=== PATIENT | female | born 1965 | race Caucasian/White ===

== ENCOUNTER 2017-05-09 07:32 | Day surgery (SDC) | payer MEDICARE, MEDICAID ==
[2017-05-09] MEDS ORDERED: Midazolam 1 MG/ML 2 ML SDV ONE (09:06)
[2017-05-09] MEDS ORDERED: Propofol 200 MG/20 ML SDV ONE (09:06)
[2017-05-09] MEDS ORDERED: fentaNYL 100 MCG/2 ML SDV ONE (09:06)
[2017-05-09] MEDS ORDERED: Lactated Ringers 1,000 ML IV SCH (09:30)
[2017-05-09 10:43] VITALS: BP 126/83
--- NOTE | 2017-05-10 08:30 | OR ---
DATE OF PROCEDURE: 05/09/2017 PREOPERATIVE DIAGNOSIS: History of colon polyps. POSTOPERATIVE DIAGNOSIS: Unremarkable colonoscopy, history of colon polyps. PROCEDURE: Colonoscopy to the cecum. SURGEON: Jona Tyler MD. ANESTHESIA: IV anesthesia with monitored anesthesia care. INDICATION: This 51-year-old white female has a history of two prior colonoscopies. In the first one, she says, they found polyps. A followup colonoscopy later was clear. This last colonoscopy was done, she says, five years ago. She is here now for a followup colonoscopy because of the prior history of polyps. I counseled her for the procedure, including risks and alternatives, and she gave her informed consent to proceed. DESCRIPTION OF PROCEDURE: The patient was placed in the left lateral decubitus position. IV anesthesia was administered by the Anesthesia Service. Time-out was held. A rectal exam was performed, which was unremarkable. The flexible video Olympus colonoscope was introduced through her anus, up her rectum, and out her colon all the way to the cecum. Once the cecum was reached, the scope was slowly withdrawn, examining the mucosa throughout. No mucosal abnormalities were noted. The scope was retroflexed in the rectum with the distal rectum appearing unremarkable. The scope was straightened and removed. She tolerated the procedure well. Jona Tyler MD /[id number] MTDD
== END 2017-05-09 11:11 | disposition home or self-care (01) ==
LOC: JP.SDS 07:32
PROVIDERS: ATTEND Surgery
DX: Z12.11 Encounter for screening for malignant neoplasm of colon (principal); Z86.010 Personal history of colon polyps; I34.1 Nonrheumatic mitral (valve) prolapse
CPT/HCPCS: G0105; J2250; J2704; J3010; J7120

== ENCOUNTER 2017-05-14 11:23 | Emergency (ER) | payer MEDICARE, MEDICAID ==
[2017-05-14 11:56] VITALS: BP 140/82
--- NOTE | 2017-05-14 12:26 | EDM.PDOC ---
ED HPI GENERAL MEDICAL PROBLEM - General Chief Complaint: Cardiovascular Problem Stated Complaint: HEART PROBLEMS Time Seen by Provider: 05/14/17 12:10 Source of Information: Reports: Patient, RN Notes Reviewed History Limitations: Reports: No Limitations - History of Present Illness INITIAL COMMENTS - FREE TEXT/NARRATIVE: 51-year-old female presents emergency department day complaint of palpitations, she states his ongoing for about 1 month it seems to be progressing in nature her events last anywhere from a couple seconds to up to 30 minutes. She has no shortness of breath or chest pain no or GI symptomatology with this. She was sent over from the clinic for further evaluation - Related Data Allergies Allergy/AdvReac Type Severity Reaction Status Date / Time No Known Allergies Allergy Verified 05/09/17 07:46 Home Meds: Home Meds Amitriptyline [Elavil] 25 mg PO BEDTIME 04/14/13 [History] Hydroxychloroquine Sulfate [Plaquenil] 200 mg PO BID 04/14/13 [History] Sertraline [Zoloft] 100 mg PO DAILY 04/14/13 [History] predniSONE [Prednisone] 5 mg PO DAILY 04/14/13 [History] Hydrocodone/Acetaminophen [Hydrocodon-Acetaminophn 10-325] 1 tab PO Q6H PRN [History] Levothyroxine 125 mcg PO DAILY 09/28/16 [History] Ascorbic Acid [Vitamin C] 100 mg PO DAILY 05/07/17 [History] Cholecalciferol (Vitamin D3) [Vitamin D3] 5,000 units PO DAILY 05/07/17 [History ] InFLIXimab [Remicade] 100 mg IV ASDIRECTED 05/07/17 [History] Meloxicam [Mobic] 15 mg PO DAILY 05/07/17 [History] Omeprazole 40 mg PO DAILY 05/07/17 [History] Zinc Acetate [Galzin] 25 mg PO DAILY 05/07/17 [History] Ferrous Sulfate [Slow Fe] 142 mg PO DAILY 05/09/17 [History] Fluticasone Furoate [Flonase Sensimist] 2 sprays NS DAILY 05/09/17 [History] Imipramine HCl [Tofranil] 10 mg PO TID 05/09/17 [History] Ipratropium [Atrovent 0.06% Nasal [place]] 2 sprays .XX BEDTIME 05/09/17 [History] Melatonin 10 mg PO BEDTIME 05/09/17 [History] Omeprazole 40 mg PO BIDAC 05/09/17 [History] Pramipexole [Mirapex] 2 tab PO BEDTIME 05/09/17 [History] Pyridoxine HCl [Vitamin B-6] 50 mg PO DAILY 05/09/17 [History] Past Medical History HEENT History: Reports: Impaired Vision Cardiovascular History: Reports: Other (See Below) Other Cardiovascular History: mitro valve prolaps. enlarged left ventrical. Gastrointestinal History: Reports: Bowel Obstruction, Chronic Constipation, Chronic Diarrhea, Colon Polyp, Diverticulosis, GERD [employer] History: Reports: Endometrial Ablation, Endometriosis Other OB/BYN History: 20 lap procedures for endometriosis Musculoskeletal History: Reports: Fibromyalgia, RA Other Musculoskeletal History: "bad SI joints and spinal stenosis" Neurological History: Reports: Concussion, Head Trauma, Migraines Psychiatric History: Reports: Anxiety, Depression Endocrine/Metabolic History: Reports: Hypothyroidism, Osteopenia, Osteoporosis Hematologic History: Reports: Anemia, Iron Deficiency Immunologic History: Reports: Immunosuppression - Infectious Disease History Infectious Disease History: Reports: Chicken Pox, Mononucleosis, Shingles - Past Surgical History GI Surgical History: Reports: Appendectomy, Colonoscopy, EGD, Other (See Below) Other GI Surgeries/Procedures: removal of staple from appy Female Surgical History: Reports: Breast Biopsy, Endometrial Ablation, Hysterectomy Endocrine Surgical History: Reports: Thyroidectomy Neurological Surgical History: Reports: Spinal Fusion, Other (See Below) Other Neurological Surgeries/Procedures: neck fusion Musculoskeletal Surgical History: Reports: Other (See Below) Other Musculoskeletal Surgeries/Procedures:: neck fusion back fusion Social & Family History - Family History Family Medical History: Unobtainable - Tobacco Use Smoking Status *Q: Former Smoker Years of Tobacco use: 25 Packs/Tins Daily: 0.5 Used Tobacco, but Quit: Yes Month Tobacco Last Used: 12 Second Hand Smoke Exposure: No - Caffeine Use Caffeine Use: Reports: Coffee Caffeine Use Comment: 1 cup per day - Alcohol Use Days Per Week of Alcohol Use: 0 - Recreational Drug Use Recreational Drug Use: No ED ROS GENERAL - Review of Systems Review Of Systems: See Below Constitutional: Reports: No Symptoms HEENT: Reports: No Symptoms Respiratory: Reports: No Symptoms Cardiovascular: Reports: Palpitations (Now resolved) GI/Abdominal: Reports: No Symptoms : Reports: No Symptoms Musculoskeletal: Reports: No Symptoms ED EXAM, GENERAL - Physical Exam Exam: See Below Exam Limited By: No Limitations General Appearance: Alert, WD/WN, No Apparent Distress Neck: Normal Inspection, Supple, Non-Tender, Full Range of Motion Respiratory/Chest: No Respiratory Distress, Lungs Clear, Normal Breath Sounds, No Accessory Muscle Use, Chest Non-Tender Cardiovascular: Regular Rate, Rhythm, No Murmur GI/Abdominal: Soft, Non-Tender Course - Vital Signs Last Recorded V/S: Last Vital Signs Temp 98.6 F 05/14/17 11:47 Pulse 68 05/14/17 11:47 Resp 16 05/14/17 11:47 BP 140/82 05/14/17 11:47 Pulse Ox 99 05/14/17 11:47 - Orders/Labs/Meds Orders: Active Orders 24 hr Category Date Time Status EKG Documentation Completion [RC] ASDIRECTED Care 05/14/17 12:24 Active EKG 12 Lead [EK] Stat Ther 05/14/17 12:24 Ordered Departure - Departure Time of Disposition: 12:46 Disposition: Home, Self-Care 01 Condition: Good Clinical Impression: Palpitations Referrals: Saul Gomez MD [Primary Care Provider] - Forms: ED Department Discharge Additional Instructions: Please follow-up with Dr. Gomez after completion of the event recorder, call or return to the emergency department worsening of symptoms - My Orders Last 24 Hours: My Active Orders 05/14/17 12:24 EKG Documentation Completion [RC] ASDIRECTED EKG 12 Lead [EK] Stat - Assessment/Plan Last 24 Hours: My Active Orders 05/14/17 12:24 EKG Documentation Completion [RC] ASDIRECTED EKG 12 Lead [EK] Stat Plan: Assessment Acuity = acute Site and laterality = paroxysmal palpitations Etiology = unclear etiology Manifestations = none Location of injury = Home Lab values = EKG demonstrates normal sinus rhythm there is no atrial enlargement there is no ventricular enlargement there is no axis deviation no T wave inversions I don't appreciate any ST depressions or elevations no Q waves noted good R wave progression Plan I did review EKG results with her she remained asymptomatic while in the emergency department doctor about options elected to proceed with an event monitor 30 day order was written on her follow-up with her primary care upon completion of the event monitor Patient was in agreement with the plan all questions were answered, they were instructed to return to the emergency department or call for worsening symptoms. This note was dictated using [employer] voice recognition software please call with any questions.
== END 2017-05-14 13:02 | disposition home or self-care (01) ==
LOC: JP.ED 11:23
DX: R00.2 Palpitations (principal); K21.9 Gastro-esophageal reflux disease without esophagitis; G43.909 Migraine, unspecified, not intractable, without status migrainosus; F41.9 Anxiety disorder, unspecified; F32.9 Major depressive disorder, single episode, unspecified; E03.9 Hypothyroidism, unspecified; M81.0 Age-related osteoporosis without current pathological fracture; Z79.899 Other long term (current) drug therapy; Z90.89 Acquired absence of other organs; Z90.710 Acquired absence of both cervix and uterus; Z87.891 Personal history of nicotine dependence
CPT/HCPCS: 93005; 93010; 93270; 93271; 99284; 99284-25